=== PATIENT | male | born 1990 | race Two or more races ===

== ENCOUNTER 2022-02-16 08:00 | Outpatient (CLI) | payer OTHER | END 2022-02-16 08:05 | disposition home or self-care (01) | LOC: PPH VACUNA 08:00 | PROVIDERS: ATTEND Emergency Medicine Pediatric Emergency Medicine | DX: Z23 Encounter for immunization (principal) ==

== ENCOUNTER 2023-05-21 23:09 | Emergency (ER) | payer OTHER ==
[~2023-05-21] VITALS: Ht 167.6 cm; Wt 72.1 kg
== END 2023-05-22 03:03 | disposition home or self-care (01) ==
LOC: ER 23:10
DX: K52.9 Noninfective gastroenteritis and colitis, unspecified (principal); R11.10 Vomiting, unspecified; Z91.013 Allergy to seafood